=== PATIENT | male | born 1980 | race African-American/Black ===

== ENCOUNTER 2016-07-29 03:29 | Emergency (ER) | payer MEDICAID ==
[~2016-07-29] VITALS: Ht 172.7 cm; Wt 61.0 kg
[~2016-07-29 03:29] MED LIST: AZIT500T3 PO; DOCU-138 PO; FERR-63 PO; FLUC100T42 PO; PROT40 PO; SULF-165 PO
[2016-07-29] MEDS ORDERED: HYDROCODONE/APAP 7.5/325MG 1 TAB TABLET PO ONE ×2 (07:15→13:15)
[2016-07-29 07:21] LABS: BASOPHILS % 0.4 % (0.0-2.0); EOSINOPHILS % 9.8 % (0.0-5.0); HEMATOCRIT. 36.1 % (42.0-52.0); HEMOGLOBIN. 11.6 g/dL (14.0-18.0); LYMPHOCYTES % 8.5 % (20.0-50.0); MEAN CORPUSCULAR HEMOGLOBIN 28.8 pg (28.0-32.0); MEAN CORPUSCULAR HGB CONC 32.2 g/dL (31.0-37.0); MEAN CORPUSCULAR VOLUME 89.4 fL (80.0-94.0); MEAN PLATELET VOLUME 6.5 fl (7.4-10.4); MONOCYTES % 8.1 % (2.0-8.0); NEUTROPHILS % 73.2 % (40.0-76.0); PLATELET 305 x1000/uL (130-400); RED BLOOD CELL COUNT 4.04 mill/uL (4.7-6.1); RED CELL DISTRIBUTION WIDTH 18.2 % (11.6-14.6); WHITE BLOOD COUNT 11.8 x1000/uL (4.5-11.0)
[2016-07-29 07:31] LABS: D-DIMER 3.97 mg/L FEU (<0.50); INR 1.1; PARTIAL THROMBOPLASTIN TIME 25.9 sec (24.0-34.0); PROTHROMBIN TIME 11.2 sec
[2016-07-29 07:38] LABS: ALANINE AMINOTRANSFERASE 10 IU/L (13-61); ANION GAP 10; CALCIUM 8.2 mg/dL (8.5-10.1); CARBON DIOXIDE 30 mEq/L (21-32); CHLORIDE 101 mEq/L (98-107); INDEX HEMOLYSI 1 (1-3); INDEX ICTERIC 1 (1-4); INDEX LIPEMIC 1 (1-3); LIPASE 87 IU/L (73-393); NT PRO B-TYPE NATRIURETIC PEP 18 pg/mL (5-125); TROPONIN I < 0.02 ng/mL (0.00-0.04); UREA NITROGEN BLOOD 6 mg/dL (7-21); eGFR > 60 mL/min (>60)
[2016-07-29] MEDS ORDERED: SODIUM CHLORIDE 0.9% 10ML VIAL ONE (13:18)
[2016-07-29] MEDS ORDERED: IOHEXOL-300 100 ML BOTTLE ONE (13:18)
[2016-07-29 14:06] VITALS: BP 117/69
== END 2016-07-29 14:55 | disposition home or self-care (01) ==
LOC: ER 03:31
DX: I89.0 Lymphedema, not elsewhere classified (principal); F12.10 Cannabis abuse, uncomplicated; Z79.899 Other long term (current) drug therapy
CPT/HCPCS: 36415; 71010; 74177; 80053; 83690; 83880; 84484; 85025; 85379; 85610; 85730; 93005; 93970; 99285; A4216; Q9967; Z7610

== ENCOUNTER 2017-09-05 04:19 | Emergency (ER) | payer MEDICAID ==
[~2017-09-05] VITALS: Ht 175.3 cm; Wt 68.0 kg
[2017-09-05 04:37] VITALS: BP 128/83
== END 2017-09-05 05:35 | disposition left against medical advice (07) ==
LOC: ER 04:19
DX: Z53.21 Procedure and treatment not carried out due to patient leaving prior to being seen by health care provider (principal)

== ENCOUNTER 2017-10-20 05:39 | Emergency (ER) | payer MEDICAID ==
[~2017-10-20] VITALS: Ht 172.7 cm; Wt 69.0 kg
[2017-10-20] MEDS ORDERED: IBUPROFEN 600MG TABLET PO ONE (07:00)
[2017-10-20 07:05] VITALS: BP 120/79
== END 2017-10-20 10:58 | disposition left against medical advice (07) ==
LOC: ER 08:16
DX: R06.00 Dyspnea, unspecified (principal); Z76.5 Malingerer [conscious simulation]; G89.29 Other chronic pain; F41.9 Anxiety disorder, unspecified; F17.200 Nicotine dependence, unspecified, uncomplicated; Z85.831 Personal history of malignant neoplasm of soft tissue; Z86.19 Personal history of other infectious and parasitic diseases; Z21 Asymptomatic human immunodeficiency virus [HIV] infection status
CPT/HCPCS: 99281

== ENCOUNTER 2017-11-17 05:53 | Emergency (ER) | payer MEDICAID ==
[~2017-11-17] VITALS: Ht 172.7 cm; Wt 66.8 kg
[2017-11-17 06:03] VITALS: BP 143/99
== END 2017-11-17 07:44 | disposition home or self-care (01) ==
LOC: ER 05:53
DX: F41.9 Anxiety disorder, unspecified (principal); G89.29 Other chronic pain; R03.0 Elevated blood-pressure reading, without diagnosis of hypertension; F90.9 Attention-deficit hyperactivity disorder, unspecified type; Z76.0 Encounter for issue of repeat prescription
CPT/HCPCS: 99283